=== PATIENT | male | born 1975 | race Hispanic/Latino ===

== ENCOUNTER 2023-08-21 12:47 | Emergency (ER) | payer OTHER ==
[~2023-08-21] VITALS: Ht 167.6 cm; Wt 88.5 kg
[2023-08-21 12:49] VITALS: BP 145/99; PULSE 98; RESP 18
[2023-08-21] MEDS: HYDROCODONE/ACETAMINOPHEN 5/325 MG TAB PO ONE (13:38)
[2023-08-21] MEDS ORDERED: CYCL10TA16 PO (16:11)
== END 2023-08-21 16:21 | disposition home or self-care (01) ==
LOC: EDBD 12:47 → EDH 12:47
DX: S60.211A Contusion of right wrist, initial encounter (principal); Z88.5 Allergy status to narcotic agent; V89.2XXA Person injured in unspecified motor-vehicle accident, traffic, initial encounter; Y93.I9 Activity, other involving external motion; Y92.488 Other paved roadways as the place of occurrence of the external cause; Y99.8 Other external cause status
CPT/HCPCS: 73090; 73110; 73130